=== PATIENT | male | born 1950 | race Caucasian/White ===

== ENCOUNTER 2020-12-23 14:25 | Inpatient (IN) | payer MEDICARE ==
[2020-12-23 17:12] LABS: ALT 27 U/L (4-49); AST 35 U/L (17-59); African American GFR (CKD) >90 (>60 ml/min/1.73 sqM); Albumin 4.7 g/dL (3.5-5.0); Alkaline Phosphatase 104 U/L (38-126); Anion Gap 11 mmol/L; Blood Urea Nitrogen 14 mg/dL (9-20); Calcium 9.9 mg/dL (8.4-10.2); Carbon Dioxide 22 mmol/L (22-30); Chloride 108 mmol/L (98-107); Glucose 95 mg/dL (74-99); Non-African American GFR(CKD) 88 (>60 ml/min/1.73 sqM); Potassium 4.1 mmol/L (3.5-5.1); Sodium 141 mmol/L (137-145); Total Bilirubin 1.2 mg/dL (0.2-1.3); Total Protein 7.1 g/dL (6.3-8.2)
[2020-12-23 17:14] LABS: INR 0.9 (<1.2); Partial Thromboplastin Time 23.4 sec (22.0-30.0); Prothrombin Time 9.9 sec (9.0-12.0)
[2020-12-23] MEDS ORDERED: ASPIRIN 81 MG PO STA (17:14)
--- NOTE | 2020-12-23 17:39 | ED ---
Chest Pain HPI - General Chief Complaint: Chest Pain Stated Complaint: elevated BP, sent from Dr Time Seen by Provider: 12/23/20 16:50 Source: patient Mode of arrival: ambulatory Limitations: no limitations - History of Present Illness Initial Comments: 70-year-old male with history of dyslipidemia presenting to the emergency department with a chief complaint of elevated blood pressure and chest discomfort. Patient reports he was at the orthopedic doctor earlier today and they obtain a blood pressure that was elevated. Patient reports while he was in the waiting room and that office, he began to have some indigestion and still continues to feel like it. States the pain is 1/10 and rather minimal. States he used to take antihypertensive medications over 2 decades ago and then stopped. He does not feel nauseous, diaphoretic, weak in the extremities or any paresthesias. Denies any headaches , visual changes or shortness of breath. States the pain is not reproducible to palpation. Denies any abdominal or back pain. Not diabetic or smoker. - Related Data Home Medications Medication Instructions Recorded Confirmed Flavanoid 2 tab PO DAILY 12/23/20 12/23/20 Magnesium Oxide [Mag-Ox] 250 mg PO DAILY 12/23/20 12/23/20 Multivitamins, Thera [Multivitamin 1 tab PO DAILY 12/23/20 12/23/20 (formulary)] Omeprazole 20 mg PO DAILY 12/23/20 12/23/20 Potassium Gluconate [Potassium 99 mg PO DAILY 12/23/20 12/23/20 Gluconate ER] Rosuvastatin [Crestor] 20 mg PO HS 12/23/20 12/23/20 Allergies Allergy/AdvReac Type Severity Reaction Status Date / Time No Known Allergies Allergy Verified 12/23/20 17:38 Review of Systems ROS Statement: Those systems with pertinent positive or pertinent negative responses have been documented in the HPI. ROS Other: All systems not noted in ROS Statement are negative. EKG Findings - EKG Comments: EKG Findings:: 1644. Sinus tachycardia with T-wave inversions in lead 3 and aVF. Right bundle-branch block. Ventricular rate 136, DC 184, QRS 160, QTC 532. 1757. Sinus tachycardia with right bundle branch block. Ventricular rate 122, QRS 116, QTC 444. Past Medical History Additional Past Medical History / Comment(s): kidney stone History of Any Multi-Drug Resistant Organisms: None Reported Past Surgical History: Tonsillectomy Additional Past Surgical History / Comment(s): left knee, Past Psychological History: No Psychological Hx Reported Smoking Status: Never smoker Past Alcohol Use History: Occasional Past Drug Use History: None Reported General Exam Limitations: no limitations General appearance: alert, in no apparent distress, obese Head exam: Present: atraumatic, normocephalic, normal inspection Eye exam: Present: normal appearance Pupils: Present: normal accommodation ENT exam: Present: normal exam, normal oropharynx, mucous membranes moist Neck exam: Present: normal inspection, full ROM Respiratory exam: Present: normal lung sounds bilaterally. Absent: respiratory distress, rales, rhonchi, stridor, chest wall tenderness, accessory muscle use Cardiovascular Exam: Present: regular rate, normal rhythm, normal heart sounds GI/Abdominal exam: Present: soft, normal bowel sounds. Absent: distended, tenderness, guarding, rebound, rigid Extremities exam: Present: normal inspection, full ROM, normal capillary refill, other (Palpable DP and PT bilaterally. Palpable ulnar and radial pulses up laterally.). Absent: tenderness, pedal edema, joint swelling, calf tenderness Back exam: Present: normal inspection, full ROM. Absent: tenderness, CVA tenderness (R), CVA tenderness (L) Neurological exam: Present: alert, oriented X3, CN II-XII intact, normal gait Psychiatric exam: Present: normal affect, normal mood Skin exam: Present: warm, dry, intact, normal color Course Vital Signs 12/23/20 12/23/20 12/23/20 16:23 17:14 19:17 Temperature 98.1 F Pulse Rate 131 H 135 H 129 H Respiratory 18 18 18 Rate Blood Pressure 134/81 154/121 135/113 O2 Sat by Pulse 96 96 96 Oximetry Chest Pain MDM - MDM 70-year-old male with history of dyslipidemia presenting to the emergency department with a chief complaint of elevated blood pressure and chest discomfort. On physical examination, patient is well-appearing with minimal discomfort in his chest. He is palpable peripheral pulses and no weakness in the extremities. Patient continued to be tachycardic and hypertensive in the emergency department. Repeat EKGs obtained showed new onset A. fib with RVR. He had otherwise a negative cardiac workup. CT chest abdomen pelvis angiogram showed no acute findings. Patient was started on Cardizem and low intensity heparin. Dr. Gramajo discussed the case with Dr. Bailey who also requested a carotid ultrasound. I spoke to Dr. Magana who will admit the patient. Disposition Clinical Impression: Atrial fibrillation with RVR Disposition: ADMITTED IP TO THIS HOSP Condition: Good Is patient prescribed a controlled substance at d/c from ED?: No Referrals: Deep Mejias MD [Primary Care Provider] - 1-2 days Time of Disposition: 20:47
[2020-12-23 17:50] LABS: Basophils # (A) 0.1 k/uL (0-0.2); Basophils % (A) 1 %; Eosinophils # (A) 0.2 k/uL (0-0.7); Eosinophils % (A) 2 %; HCT 50.4 % (39.0-53.0); HGB 17.8 gm/dL (13.0-17.5); Lymphocytes # (A) 2.9 k/uL (1.0-4.8); Lymphocytes % (A) 35 %; MCH 34.5 pg (25.0-35.0); MCHC 35.4 g/dL (31.0-37.0); MCV 97.5 fL (80.0-100.0); Mean Platelet Volume 7.6; Monocytes # (A) 0.8 k/uL (0-1.0); Monocytes % (A) 9 %; Neutrophils # (A) 4.1 k/uL (1.3-7.7); Neutrophils % (A) 49 %; Platelet Count 290 k/uL (150-450); RBC 5.17 m/uL (4.30-5.90); WBC 8.4 k/uL (3.8-10.6)
--- NOTE | 2020-12-23 18:47 | XR ---
EXAMINATION TYPE: XR chest 2V DATE OF EXAM: 12/23/2020 COMPARISON: NONE HISTORY: Epigastric pain TECHNIQUE: 2 views FINDINGS: Heart and mediastinum are normal. Lungs are clear. Diaphragm is normal. Bony thorax is inta ct. There are chest leads. IMPRESSION: Normal chest.
--- NOTE | 2020-12-23 19:36 | CT ---
EXAMINATION TYPE: CT angio thor/abd pel aorta DATE OF EXAM: 12/23/2020 COMPARISON: CT abdomen pelvis 12/31/2013 HISTORY: Chest pain and tachycardia. CT DLP: 1357 mGycm Automated exposure control for dose reduction was used. CONTRAST: Performed without and with IV Contrast, patient injected with 100ml mL of Isovue 370. Images obtained from the thoracic inlet to the floor the pelvis with IV contrast. There are 3-D post processed images. There are noncontrast images through the chest. The lungs are clear of infiltrate. There is no evidence of a pulmonary mass. Heart size is normal. Th ere is small hiatal hernia. There is no pericardial effusion. There are no hilar masses. There is no mediastinal adenopathy. Thoracic aorta appears normal. There is no aneurysm or dissection. The ascend ing aorta measures 3.4 cm. Liver spleen stomach appear intact. Gallbladder appears normal. Bile ducts are not dilated. There is no pancreatic mass. There is no adrenal mass. Kidneys show satisfactory contrast opacification. Kidne ys have normal size and contour. There are a few calculi in the right kidney.There is no hydronephros is. There is no retroperitoneal adenopathy. Bladder distends smoothly. There is normal arterial contrast opacification of the abdominal aorta and the celiac artery and supe rior mesenteric artery. There is no evidence of stenosis. There is arterial flow in both renal arteri es and the iliac and femoral arteries. There is no evidence of arterial aneurysm or dissection. There is no evidence of arterial stenosis. There are bilateral mild fat-containing inguinal hernias. Appen tabby is not definitely seen. No sign of thickened appendix. Thoracic and lumbar spine are intact. There is no compression fracture. There is mild spondylotic daphney nges in the thoracic and lumbar spine. Sternum is intact. The bony pelvis is intact. Hip joints are i ntact. Shoulder joints are intact. IMPRESSION: No evidence of arterial aneurysm or dissection. Mild atherosclerotic vascular disease. No evidence of hemodynamic stenosis. No evidence of pulmonary embolism. Nonobstructing right renal calculi. There is clearing of the obstructing calculus at the right renal pelvis compared to old exam.
[2020-12-23] MEDS ORDERED: HEPARIN SODIUM 1,000 UN/ML (10ML VL) IV PRN (20:18)
[2020-12-23] MEDS ORDERED: HEPARIN SODIUM 1,000 UN/ML (10ML VL) IV ONE (20:18)
[2020-12-23] MEDS ORDERED: HEPARIN SOD,PORK IN 0.45% NACL 25,000 UNIT in 0.45% NACL 1 250ML.BAG IV SCH (20:30)
[2020-12-23] MEDS ORDERED: NALOXONE 0.4 MG/ML 1 ML VIAL IV PRN (20:44)
[2020-12-23] MEDS ORDERED: SODIUM CHLORIDE 0.9% 1,000 ML IV SCH (20:45)
[2020-12-23] MEDS: DILTIAZEM 125 MG in SODIUM CHLORIDE 0.9% 100 ML IV SCH (20:50)
[2020-12-23] MEDS ORDERED: ATORVASTATIN 40 MG TAB PO SCH (21:00)
[2020-12-23] MEDS ORDERED: DILTIAZEM 125 MG in SODIUM CHLORIDE 0.9% 100 ML IV SCH (21:00)
[2020-12-24 03:35] LABS: Basophils # (A) 0.1 k/uL (0-0.2); Basophils % (A) 1 %; Eosinophils # (A) 0.2 k/uL (0-0.7); Eosinophils % (A) 2 %; HCT 46.1 % (39.0-53.0); Lymphocytes # (A) 4.1 k/uL (1.0-4.8); Lymphocytes % (A) 39 %; MCH 33.7 pg (25.0-35.0); MCHC 34.7 g/dL (31.0-37.0); MCV 97.1 fL (80.0-100.0); Mean Platelet Volume 7.9; Monocytes # (A) 0.9 k/uL (0-1.0); Monocytes % (A) 9 %; Neutrophils # (A) 4.9 k/uL (1.3-7.7); Neutrophils % (A) 47 %; Platelet Count 266 k/uL (150-450); RBC 4.75 m/uL (4.30-5.90); RDW 12.5 % (11.5-15.5); WBC 10.5 k/uL (3.8-10.6)
[2020-12-24 04:07] LABS: INR 1.1 (<1.2); Partial Thromboplastin Time 45.1 sec (22.0-30.0); Prothrombin Time 11.1 sec (9.0-12.0)
[2020-12-24] MEDS: DILTIAZEM 125 MG in SODIUM CHLORIDE 0.9% 100 ML IV SCH (08:07)
[2020-12-24] MEDS ORDERED: PANTOPRAZOLE 40 MG TABLET PO SCH (09:00)
[2020-12-24] MEDS ORDERED: [UNRECOGNIZED DRUG - OTHER] PO SCH (09:00)
[2020-12-24] MEDS ORDERED: MAGNESIUM OXIDE 400 MG TAB PO SCH (09:00)
[2020-12-24] MEDS ORDERED: MULTIVITAMINS, THERA 1 EACH TAB PO SCH (09:00)
[2020-12-24] MEDS ORDERED: NON FORMULARY DRUG (Potassium Gluconate [Potassium Gluconate Er] 99 MG Tablet) PO SCH (09:00)
[2020-12-24 09:11] VITALS: PULSE 64; RESP 20
[2020-12-24] MEDS ORDERED: METOPROLOL SUCCINATE (ER) 25 MG TAB.ER.24H PO SCH (09:45)
--- NOTE | 2020-12-24 10:51 | P.CRDCN ---
History of Present Illness Consult date: 12/24/20 History of present illness: HISTORY OF PRESENT ILLNESS: This is a 70-year-old male with a past medical history significant for hyperlipidemia and GERD. 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 We have been asked to see the patient in consultation for atrial fibrillation with RVR. Patient examined at the bedside. Patient states yesterday he was at his orthopedic doctor to get an injection in his knee. They took his vital signs and a currently found his blood pressure to be high and also his heart rate to be high and recommended that he come to the emergency room for further evaluation. The patient denies feeling any palpitations yesterday. He reports feeling mild heartburn yesterday which he states is not uncommon for him. Patient denied any chest pain or pressure. He denies shortness of breath. Patient was found to be in atrial fibrillation with RVR. Patient was started on IV Cardizem and IV heparin. He has since converted to sinus mechanism. His Cardizem drip has been discontinued. Patient does report having some fluttering on a few occasions over the past few months that he states went away within a few minutes of sitting down and relaxing. Initial EKG reveals sinus tachycardia. Repeat EKG reveals atrial fibrillation versus multifocal atrial tachycardia Chest xray negative for acute process Laboratory data: WBC 10.5. Hemoglobin 16.0. Platelet count 266. Sodium 141. Potassium 4.1. BUN 14. Creatinine 0.84. Troponin negative 3. D-dimer 0.34. Current home cardiac medications include Crestor 20 mg daily REVIEW OF SYSTEMS: At the time of my exam: CONSTITUTIONAL: Denies fever or chills. HEENT: Denies blurred vision, vision changes, or eye pain. Denies hemoptysis CARDIOVASCULAR: Denies chest pain. Denies orthopnea. Denies PND. Denies palpitations RESPIRATORY: Denies shortness of breath. GASTROINTESTINAL: Denies abdominal pain. Denies nausea or vomiting. HEMATOLOGIC: Denies bleeding disorders. GENITOURINARY: Denies any blood in urine. SKIN: Denies pruitis. Denies rash. PHYSICAL EXAM: VITAL SIGNS: Reviewed. GENERAL: Well-developed in no acute distress. HEENT: Head is normocephalic. Pupils are equal, round. Sclerae anicteric. Mucous membranes of the mouth are moist. Neck supple. No JVD or thyromegaly LUNGS: Respirations even and unlabored. Lungs essentially clear to auscultation bilaterally. HEART: Regular rate and rhythm. S1 and S2 heard. ABDOMEN: Soft. Nondistended. Nontender. EXTREMITIES: Normal range of motion. No clubbing or cyanosis. Peripheral pulses intact. No lower extremity edema NEUROLOGIC: Awake and alert. Oriented x 3. ASSESSMENT: New-onset paroxysmal atrial fibrillation with RVR, differential diagnosis of multifocal atrial tachycardia, currently maintaining sinus mechanism Hyperlipidemia GERD PLAN: Obtain 2-D echo to assess cardiac structure and function Begin metoprolol succinate 25 mg daily Continue home dose of Lipitor Check TSH Continue IV heparin. Case management consulted to verify coverage of oral an ticoagulation Patient to undergo outpatient stress testing Further recommendations pending patient's course Nurse practitioner note has been reviewed by physician. Signing provider agrees with the documented findings, assessment, and plan of care. Past Medical History Additional Past Medical History / Comment(s): kidney stone History of Any Multi-Drug Resistant Organisms: None Reported Past Surgical History: Tonsillectomy Additional Past Surgical History / Comment(s): left knee, Past Psychological History: No Psychological Hx Reported Smoking Status: Never smoker Past Alcohol Use History: Occasional Past Drug Use History: None Reported Medications and Allergies Home Medications Medication Instructions Recorded Confirmed Type Flavanoid 2 tab PO DAILY 12/23/20 12/23/20 History Magnesium Oxide [Mag-Ox] 250 mg PO DAILY 12/23/20 12/23/20 History Multivitamins, Thera [Multivitamin 1 tab PO DAILY 12/23/20 12/23/20 History (formulary)] Omeprazole 20 mg PO DAILY 12/23/20 12/23/20 History Potassium Gluconate [Potassium 99 mg PO DAILY 12/23/20 12/23/20 History Gluconate ER] Rosuvastatin [Crestor] 20 mg PO HS 12/23/20 12/23/20 History Allergies Allergy/AdvReac Type Severity Reaction Status Date / Time No Known Allergies Allergy Verified 12/23/20 17:38 Physical Exam Vitals: Vital Signs Temp Pulse Pulse Resp BP BP Pulse Ox 12/24/20 08:00 97.8 F 64 20 140/88 95 12/24/20 04:00 58 L 142/78 12/24/20 02:00 60 12/24/20 00:00 75 12/23/20 23:59 98 18 149/93 12/23/20 21:51 73 16 133/80 96 12/23/20 21:00 62 12/23/20 19:17 129 H 18 135/113 96 12/23/20 17:14 135 H 18 154/121 96 12/23/20 16:23 98.1 F 131 H 18 134/81 96 Intake and Output 12/23/20 12/24/20 12/24/20 22:59 06:59 14:59 Intake Total 1.667 Balance 1.667 Intake: Intake, IV Titration 1.667 Amount Diltiazem 125 mg In 1.667 Sodium Chloride 0.9% 100 ml @ 5 MG/HR 5 mls/hr IV .Q24H [facility] Rx#:[id number] Other: Weight 97.522 kg 96.7 kg Results 12/24/20 03:05 12/23/20 16:55 Cardiac Enzymes 12/23/20 12/23/20 12/23/20 Range/Units 16:55 16:55 20:48 AST 35 (17-59) U/L Troponin I <0.012 <0.012 (0.000-0.034) ng/mL 12/24/20 Range/Units 00:09 AST (17-59) U/L Troponin I 0.032 (0.000-0.034) ng/mL Coagulation 12/23/20 12/24/20 Range/Units 16:55 03:05 PT 9.9 11.1 (9.0-12.0) sec APTT 23.4 45.1 H (22.0-30.0) sec CBC 12/23/20 12/24/20 Range/Units 16:55 03:05 WBC 8.4 10.5 (3.8-10.6) k/uL RBC 5.17 4.75 (4.30-5.90) m/uL Hgb 17.8 H 16.0 (13.0-17.5) gm/dL Hct 50.4 46.1 (39.0-53.0) % Plt Count 290 266 (150-450) k/uL Comprehensive Metabolic Panel 12/23/20 Range/Units 16:55 Sodium 141 (137-145) mmol/L Potassium 4.1 (3.5-5.1) mmol/L Chloride 108 H (98-107) mmol/L Carbon Dioxide 22 (22-30) mmol/L BUN 14 (9-20) mg/dL Creatinine 0.84 (0.66-1.25) mg/dL Glucose 95 (74-99) mg/dL Calcium 9.9 (8.4-10.2) mg/dL AST 35 (17-59) U/L ALT 27 (4-49) U/L Alkaline Phosphatase 104 (38-126) U/L Total Protein 7.1 (6.3-8.2) g/dL Albumin 4.7 (3.5-5.0) g/dL Current Medications Generic Name Dose Route Start Last Admin Trade Name Freq PRN Reason Stop Dose Admin Atorvastatin Calcium 40 mg 12/23/20 21:00 12/23/20 20:51 Atorvastatin 40 Mg Tab PO 40 mg HS BARBRA Administration Heparin Sodium (Porcine) 0 unit 12/23/20 20:18 Heparin Sodium 1,000 Un/Ml (10ml Vl) IV PER PROTOCOL PRN Low PTT Protocol Heparin Sodium/Sodium Chloride 250 mls @ 10 mls/hr 12/23/20 20:30 12/23/20 20:44 25,000 unit/ Sodium Chloride IV 10.254 units/kg/hr .Q24H BARBRA 10 mls/hr Administration Protocol 10.254 UNITS/KG/HR Diltiazem HCl 125 mg/ Sodium 125 mls @ 5 mls/hr 12/23/20 20:30 12/24/20 08:07 Chloride IV Not Given .Q24H BARBRA 5 MG/HR Sodium Chloride 1,000 mls @ 75 mls/hr 12/23/20 20:45 12/23/20 21:54 Saline 0.9% IV 75 mls/hr .[id number] BARBRA Administration Magnesium Oxide 400 mg 12/24/20 09:00 Magnesium Oxide 400 Mg Tab PO DAILY BARBRA Multivitamins 1 each 12/24/20 09:00 Multivitamins, Thera 1 Each Tab PO DAILY BARBRA Naloxone HCl 0.2 mg 12/23/20 20:44 Naloxone 0.4 Mg/Ml 1 Ml Vial IV Q2M PRN Opioid Reversal Pantoprazole Sodium 40 mg 12/24/20 09:00 Pantoprazole 40 Mg Tablet PO DAILY BARBRA Intake and Output 12/23/20 12/24/20 12/24/20 22:59 06:59 14:59 Intake Total 1.667 Balance 1.667 Intake: Intake, IV Titration 1.667 Amount Diltiazem 125 mg In 1.667 Sodium Chloride 0.9% 100 ml @ 5 MG/HR 5 mls/hr IV .Q24H [facility] Rx#:[id number] Other: Weight 97.522 kg 96.7 kg 12/24/20 03:05 12/23/20 16:55
[2020-12-24] MEDS ORDERED: APIXABAN 5 MG TAB PO SCH (11:00)
[2020-12-24 11:31] LABS: T4, Free (Free Thyroxine) 1.68 ng/dL (0.78-2.19)
[2020-12-24 11:55] VITALS: BP 138/82; TEMP 97.6
--- NOTE | 2020-12-24 14:00 | P.HPIM ---
History of Present Illness H&P Date: 12/24/20 HISTORY AND PHYSICAL AND DISCHARGE SUMMARY: HISTORY OF PRESENT ILLNESS This is a 70-year-old male patient of Dr. Mejias with past medical history of hyperlipidemia, gastroesophageal reflux disease. Patient states that he was at Dr. Gr's office yesterday to get an injection done in his knee and his vital signs were checked and his heart rate was found to be elevated. He was feeling indigestion but no true chest pain. He was then instructed to come into the hospital for further evaluation. He does state that he has had short episodes of a fluttering feeling in his chest in the past. Patient was found to be afebrile, heart rate in the 130s, blood pressure 134/81, pulse ox 96% on room air. EKG was initially A. fib with RVR. Patient was started on IV Cardizem and IV heparin and converted to sinus rhythm. At the time of this evaluation, patient is in a sinus rhythm. Chest x-ray showed no acute process. WBC 10.5, hemoglobin 16, platelet count 266. Sodium 141, potassium 4.1, BUN 14 and creatinine 0.84. Troponin was negative on 3 draws. D-dimer 0.34. Patient was placed on the observation unit, seen by cardiology and started on metoprolol and eliquis. Patient denies having any symptoms at this time and is agreeable for d ischarge home today in stable condition. CT angiogram of the thoracic and abdominal aorta revealed no evidence of aneurysm or dissection. Mild atherosclerotic vascular disease. No evidence of hemodynamic stenosis. No pulmonary embolism. Nonobstructing right renal calculi. There is clearing of an obstructing calculus at the right renal pelvis compared to old exam. Echocardiogram reveals EF of 55-60%, borderline concentric left ventricular hypertrophy, mild mitral regurgitation, mild tricuspid regurgitation. REVIEW OF SYSTEMS Constitutional: No fever, no chills, no night sweats. No weight change. No weakness, fatigue or lethargy. No daytime sleepiness. EENT: No headache. No blurred vision or double vision, no loss of vision. No loss of Hearing, no ringing in the ears, no dizziness. No nasal drainage or congestion. No epistaxis. No sore throat. Lungs: No shortness of breath, cough, no sputum production. No wheezing. Cardiovascular: No chest pain, no lower extremity edema. Reported palpitations, resolved. No paroxysmal nocturnal dyspnea. No orthopnea. No lightheadedness or dizziness. No syncopal episodes. Abdominal: No abdominal pain. No nausea, vomiting. No diarrhea. No constipation. No bloody or tarry stools.. No loss of appetite. Genitourinary: No dysuria, increased frequency, urgency. No urinary retention. Musculoskeletal: No myalgias. No muscle weakness, no gait dysfunction, no frequent falls. No back pain. No neck pain. Integumentary: No wounds, no lesions. No rash or pruritus. No unusual brui sing. No change in hair or nails. Neurologic: No aphasia. No facial droop. No change in mentation. No head injury. No headache. No paralysis. No paresthesia. Psychiatric: No depression. No anxiety. No mood swings. Endocrine: No abnormal blood sugars. No weight change. No excessive sweating or thirst. No cold intolerance. SOCIAL HISTORY Patient is a lifelong nonsmoker, he drinks alcohol occasionally, no marijuana use or illicit drug use, no DME in place. Patient is single/ and lives alone. FAMILY HISTORY Father at age 57 from an accident. Mother at age 93 from old age with previous history of myocardial infarction and coronary artery disease. Patient has 2 sisters and one is passed from lung cancer. Second sister has no major medical problems. He does not have any brothers. Patient has 2 children with no major medical problems.. PHYSICAL EXAMINATION Gen: This is a 70-year-old male. He is resting in bed and appears to be comfortable and in no acute distress. HEENT: Head is atraumatic, normocephalic. Pupils equal, round. Sclerae is anicteric. NECK: Supple. No JVD. No lymphadenopathy. No thyromegaly. LUNGS: Clear to auscultation. No wheezes or rhonchi. No intercostal retractions. HEART: Regular rate and rhythm. No murmur. ABDOMEN: Soft. Bowel sounds are present. No masses. No tenderness. EXTREMITIES: No pedal edema. No calf tenderness. Dorsalis pedis +2 b ilaterally. NEUROLOGICAL: Patient is awake, alert and oriented x3. Cranial nerves 2 through 12 are grossly intact. ASSESSMENT AND PLAN 1. Atrial fibrillation with RVR, paroxysmal atrial fibrillation. 2. Hyperlipidemia. 3. Gastroesophageal reflux disease. Patient will be admitted to the hospital for a minimum of 1 night stay. DISCHARGE PLAN Home. DISCHARGE MEDICATIONS Flavanoid 2 tab PO DAILY 12/23/20 [History] Magnesium Oxide [Mag-Ox] 250 mg PO DAILY 12/23/20 [History] Multivitamins, Thera [Multivitamin (formulary)] 1 tab PO DAILY 12/23/20 [History] Omeprazole 20 mg PO DAILY 12/23/20 [History] Potassium Gluconate [Potassium Gluconate ER] 99 mg PO DAILY 12/23/20 [History] Rosuvastatin [Crestor] 20 mg PO HS 12/23/20 [History] Apixaban [Eliquis] 5 mg PO BID #60 tab 12/24/20 [Rx] Metoprolol Succinate (ER) [Toprol XL] 25 mg PO DAILY #30 tab 12/24/20 [Rx] Impression and plan of care have been directed as dictated by the signing physician. Valerie Cardoso nurse practitioner acting as scribe for signing physician. Past Medical History Additional Past Medical History / Comment(s): kidney stone History of Any Multi-Drug Resistant Organisms: None Reported Past Surgical History: Tonsillectomy Additional Past Surgical History / Comment(s): left knee, Past Psychological History: No Psychological Hx Reported Smoking Status: Never smoker Past Alcohol Use History: Occasional Past Drug Use History: None Reported Medications and Allergies Home Medications Medication Instructions Recorded Confirmed Type Flavanoid 2 tab PO DAILY 12/23/20 12/23/20 History Magnesium Oxide [Mag-Ox] 250 mg PO DAILY 12/23/20 12/23/20 History Multivitamins, Thera [Multivitamin 1 tab PO DAILY 12/23/20 12/23/20 History (formulary)] Omeprazole 20 mg PO DAILY 12/23/20 12/23/20 History Potassium Gluconate [Potassium 99 mg PO DAILY 12/23/20 12/23/20 History Gluconate ER] Rosuvastatin [Crestor] 20 mg PO HS 12/23/20 12/23/20 History Apixaban [Eliquis] 5 mg PO BID #60 tab 12/24/20 Rx Metoprolol Succinate (ER) [Toprol 25 mg PO DAILY #30 tab 12/24/20 Rx XL] Allergies Allergy/AdvReac Type Severity Reaction Status Date / Time No Known Allergies Allergy Verified 12/23/20 17:38 Physical Exam Vitals: Vital Signs Temp Pulse Pulse Resp BP BP Pulse Ox 12/24/20 04:00 58 L 142/78 12/24/20 02:00 60 12/24/20 00:00 75 12/23/20 23:59 98 18 149/93 12/23/20 21:51 73 16 133/80 96 12/23/20 21:00 62 12/23/20 19:17 129 H 18 135/113 96 12/23/20 17:14 135 H 18 154/121 96 12/23/20 16:23 98.1 F 131 H 18 134/81 96 Intake and Output 12/23/20 12/24/20 12/24/20 22:59 06:59 14:59 Intake Total 1.667 Balance 1.667 Intake: Intake, IV Titration 1.667 Amount Diltiazem 125 mg In 1.667 Sodium Chloride 0.9% 100 ml @ 5 MG/HR 5 mls/hr IV .Q24H [facility] Rx#:[id number] Other: Weight 97.522 kg 96.7 kg Results CBC & Chem 7: 12/24/20 03:05 12/23/20 16:55 Labs: Abnormal Lab Results - Last 24 Hours (Table) 12/23/20 12/23/20 12/24/20 Range/Units 16:55 16:55 03:05 Hgb 17.8 H (13.0-17.5) gm/dL APTT 45.1 H (22.0-30.0) sec Chloride 108 H (98-107) mmol/L Thrombosis Risk Factor Assmnt - Choose All That Apply Any of the Below Risk Factors Present?: Yes Each Factor Represents 1 point: Obesity (BMI >25) Other Risk Factors: Yes Each Risk Factor Represents 2 Points: Age 61-74 years Other congenital or acquired thrombophilia - If yes, enter type in comment: No Thrombosis Risk Factor Assessment Total Risk Factor Score: 3 Thrombosis Risk Factor Assessment Level: Moderate Risk
--- NOTE | 2020-12-24 16:00 | ECHOF ---
Referral Reason:new onset afib with rvr MEASUREMENTS -------- HEIGHT: 172.7 cm WEIGHT: 96.6 kg BP: 142/78 IVSd: 1.1 cm (0.6 - 1.1) LVIDd: 4.1 cm (3.9 - 5.3) LVPWd: 1.3 cm (0.6 - 1.1) EDV(Teich): 75 ml IVSs: 1.7 cm LVIDs: 2.6 cm LVPWs: 1.8 cm %IVS Thck: 47 % ESV(Teich): 25 ml EF(Teich): 67 % %FS: 36 % SV(Teich): 50 ml RVIDd: 3.2 cm (< 3.3) LALs A4C: 4.3 cm LAAs A4C: 11.7 cm LAESV A-L A4C: 27 ml LAESV MOD A4C: 26 ml Ao Diam: 3.0 cm (2.0 - 3.7) LA Diam: 3.1 cm (2.7 - 3.8) AV Cusp: 1.9 cm (1.5 - 2.6) EPSS: 0.8 cm MV E Miguel A: 0.72 m/s MV DecT: 167 ms MV Dec [place]: 4.3 m/s MV A Miguel A: 0.72 m/s MV E/A Ratio: 1.00 MV PHT: 49 ms MR Vmax: 3.05 m/s MR maxP.27 mmHg AV Vmax: 0.84 m/s AV maxP.79 mmHg TR Vmax: 2.15 m/s TR maxP.43 mmHg RAP: 5.00 mmHg RVSP: 23.43 mmHg MV EF SLOPE: 134.34 mm/s (70 - 150) MV EXCURSION: 15.97 mm (> 18.000) FINDINGS -------- This was a technically difficult study with suboptimal views. The left ventricular size is normal. There is borderline concentric left ventricular hypertrophy. Overall left ventricular systolic function is normal with, an EF between 55 - 60 %. The right ventricle is normal in size. The left atrial size is normal. The right atrial size is normal. Lumason used The aortic valve is trileaflet and appears structurally normal. The mitral valve is normal. Mild mitral regurgitation is present. The tricuspid valve appears structurally normal. Mild tricuspid regurgitation present. Right vent ricular systolic pressure is normal at < 35 mmHg. There is no pulmonic regurgitation present. The aortic root size is normal. IVC Not well visulized. There is no pericardial effusion. CONCLUSIONS -------- 1. The left ventricular size is normal. 2. There is borderline concentric left ventricular hypertrophy. 3. Overall left ventricular systolic function is normal with, an EF between 55 - 60 %. 4. Mild mitral regurgitation is present. 5. Mild tricuspid regurgitation present. 6. There is no pericardial effusion. BLOOD BANK TECHNICIAN: Avis Angeles RDCS
== END 2020-12-24 13:30 | disposition home or self-care (01) | DRG 310 ==
LOC: EC 14:25 → 3SCARD 20:20
PROVIDERS: ADMIT Internal Medicine Geriatric Medicine; ATTEND Internal Medicine Geriatric Medicine
DX: I48.0 Paroxysmal atrial fibrillation (principal); E78.5 Hyperlipidemia, unspecified; R00.0 Tachycardia, unspecified; K21.9 Gastro-esophageal reflux disease without esophagitis; N20.0 Calculus of kidney; Z79.01 Long term (current) use of anticoagulants; Z87.442 Personal history of urinary calculi
CPT/HCPCS: 36415; 71046; 71275; 74174; 80053; 83735; 84439; 84443; 84484; 85025; 85379; 85610; 85730; 86850; 86900; 86901; 93005; 93306; 96365; 96366; 99285